=== PATIENT | male | born 1935 | race Caucasian/White ===

== ENCOUNTER 2019-01-17 09:33 | Inpatient (IN) ==
[2019-01-17 10:24] LABS: Basophils % 0.3 % (0.0-0.8); Eosinophils # 0.1 10*3/uL (0.0-0.87); Eosinophils % 0.6 % (0.00-10.9); Hematocrit 47.2 VOL% (42.0-52.0); Hemoglobin 15.6 GM/DL (14.0-18.0); Immature Granulocytes % 0.4 %; Immature Granulocytes Absolute 0.04 #; Lymphocytes # 1.8 10*3/uL (1.4-4.0); Lymphocytes % 18.3 % (21.2-54.2); Mean Corpuscular HGB Conc 33.1 GM/DL (32-36); Mean Corpuscular Volume 93.5 FL (87-102); Mean Platelet Volume 10.3 FL (9.6-12.0); Monocytes % 6.3 % (1.7-12.7); Neutrophils % 74.1 % (38.7-73.9); Platelet Count 154 T/CUMM (130-400); Red Blood Count 5.05 MC/CUMM (3.8-5.5); White Blood Count 9.8 T/CUMM (4-12)
[2019-01-17 10:36] LABS: Albumin 3.8 G/DL (3.4-5.0); Bilirubin,Total 0.4 MG/DL (0.2-1.0); Calcium 9.1 MG/DL (8.5-10.1); Osmolality,Calculated 280.5 MOS/KG (273-304)
[2019-01-17] MEDS ORDERED: ONDANSETRON 4 MG/2 ML VIAL IV PRN (10:55)
[2019-01-17] MEDS ORDERED: diphenhydrAMINE CAP 25 MG CAPSULE PO ONE (13:26)
[2019-01-17] MEDS ORDERED: DIAZEPAM 5 MG TABLET PO ONE (13:26)
[2019-01-17] MEDS ORDERED: POTASSIUM CHLORIDE RIDER 10 MEQ in PREMIX 1 EACH IV PRN (13:26)
[2019-01-17] MEDS ORDERED: MAGNESIUM SULF RIDER 2 GM in PREMIX 1 EACH IV PRN (13:26)
[2019-01-17] MEDS ORDERED: NITROGLYCERIN SL 0.4 MG TABLET SL PRN (13:27)
[2019-01-17] MEDS ORDERED: LIDOCAINE 1% 20 ML VIAL ONE (13:30)
[2019-01-17] MEDS ORDERED: HEPARIN/NACL 0.9% 2 UNITS/ML 500 ML IV ONE ×2 (13:30→13:37)
[2019-01-17 13:47] LABS: Basophils % 0.3 % (0.0-0.8); Eosinophils # 0.1 10*3/uL (0.0-0.87); Eosinophils % 0.6 % (0.00-10.9); Hemoglobin 14.8 GM/DL (14.0-18.0); Immature Granulocytes % 0.3 %; Immature Granulocytes Absolute 0.03 #; Lymphocytes # 2.3 10*3/uL (1.4-4.0); Lymphocytes % 24.2 % (21.2-54.2); Mean Corpuscular HGB Conc 32.9 GM/DL (32-36); Mean Corpuscular Volume 93.9 FL (87-102); Mean Platelet Volume 9.9 FL (9.6-12.0); Neutrophils % 66.6 % (38.7-73.9); Platelet Count 153 T/CUMM (130-400); Red Blood Count 4.79 MC/CUMM (3.8-5.5); Red Cell Distribution Width 11.9 % (9.3-17.3); White Blood Count 9.3 T/CUMM (4-12)
[2019-01-17 13:55] LABS: PT Patient Result 11.3 SECS (9.6-12.2)
[2019-01-17] MEDS ORDERED: MIDAZOLAM 2 MG/2 ML VIAL ONE (14:06)
[2019-01-17] MEDS ORDERED: HYDROmorphone 2 MG/1 ML VIAL ONE (14:06)
[2019-01-17 14:12] LABS: Troponin I 0.039 NG/ML (0.00-0.045)
[2019-01-17] MEDS ORDERED: diphenhydrAMINE 50 MG/1 ML VIAL ONE (14:21)
[2019-01-17] MEDS ORDERED: BIVALIRUDIN 250 MG VIAL IV ONE (14:42)
[2019-01-17] MEDS ORDERED: TICAGRELOR 90 MG TABLET ONE (14:58)
[2019-01-17] MEDS ORDERED: ZALEPLON 5 MG CAPSULE PO PRN (15:16)
[2019-01-17 17:22] LABS: Troponin I 0.047 NG/ML (0.00-0.045)
[2019-01-17] MEDS: LORazepam 0.5 MG TABLET PO SCH ×2 (17:46→21:51)
[2019-01-17] MEDS: SODIUM CHLORIDE 0.45% 1,000 ML IV SCH ×2 (17:47→22:07)
[2019-01-17 19:45] LABS: Troponin I 0.062 NG/ML (0.00-0.045)
[2019-01-17] MEDS ORDERED: AMIODARONE INJ 150 MG in DEXTROSE 5% 100 ML IV ONE (20:53)
[2019-01-17] MEDS ORDERED: carvediloL 3.125 MG TABLET PO SCH (21:00)
[2019-01-17] MEDS ORDERED: AMIODARONE INJ 450 MG in DEXTROSE 5% 241 ML IV SCH (21:00)
[2019-01-17] MEDS: ATORVASTATIN 10 MG TABLET PO SCH (21:45)
[2019-01-17] MEDS: TERAZOSIN 10 MG CAPSULE PO SCH (21:45)
[2019-01-17] MEDS: DOCUSATE SODIUM 100 MG CAPSULE PO SCH (21:45)
[2019-01-17] MEDS: ASPIRIN CHEW 81 MG TABLET PO SCH (21:46)
[2019-01-17] MEDS: TICAGRELOR 90 MG TABLET PO SCH (21:46)
[2019-01-17] MEDS: FUROSEMIDE 40 MG TABLET PO SCH (21:46)
[2019-01-17] MEDS: carvediloL 6.25 MG TABLET PO SCH (21:46)
[2019-01-17] MEDS: ACETAMINOPHEN 325 MG TABLET PO PRN (21:51)
[2019-01-17 23:26] LABS: Troponin I 0.062 NG/ML (0.00-0.045)
[2019-01-18] MEDS: AMIODARONE INJ 450 MG in DEXTROSE 5% 241 ML IV SCH ×2 (04:01→08:47)
[2019-01-18 04:47] LABS: Basophils % 0.3 % (0.0-0.8); Eosinophils # 0.2 10*3/uL (0.0-0.87); Eosinophils % 1.7 % (0.00-10.9); Hematocrit 40.8 VOL% (42.0-52.0); Hemoglobin 13.5 GM/DL (14.0-18.0); Immature Granulocytes % 0.4 %; Immature Granulocytes Absolute 0.04 #; Lymphocytes # 2.1 10*3/uL (1.4-4.0); Lymphocytes % 22.3 % (21.2-54.2); Mean Corpuscular HGB Conc 33.1 GM/DL (32-36); Mean Corpuscular Volume 92.7 FL (87-102); Mean Platelet Volume 10.6 FL (9.6-12.0); Neutrophils % 65.3 % (38.7-73.9); Platelet Count 146 T/CUMM (130-400); Red Cell Distribution Width 11.9 % (9.3-17.3); White Blood Count 9.4 T/CUMM (4-12)
[2019-01-18 05:09] LABS: Calcium 8.2 MG/DL (8.5-10.1); Osmolality,Calculated 275.7 MOS/KG (273-304)
[2019-01-18] MEDS: SODIUM CHLORIDE 0.45% 1,000 ML IV SCH ×3 (06:16→21:23)
[2019-01-18] MEDS ORDERED: DEXTROSE 5% IV SCH (08:49)
[2019-01-18] MEDS ORDERED: AMIODARONE IV SCH (08:49)
[2019-01-18] MEDS ORDERED: lisinopriL 5 MG TABLET PO SCH (09:00)
[2019-01-18] MEDS ORDERED: CLOPIDOGREL 75 MG TABLET PO SCH (09:00)
[2019-01-18] MEDS: lisinopriL 2.5 MG TABLET PO SCH (09:13)
[2019-01-18] MEDS: DOCUSATE SODIUM 100 MG CAPSULE PO SCH ×2 (09:13→21:14)
[2019-01-18] MEDS: PANTOPRAZOLE 40 MG TABLET PO SCH (09:13)
[2019-01-18] MEDS: TICAGRELOR 90 MG TABLET PO SCH ×2 (09:13→21:14)
[2019-01-18] MEDS: FUROSEMIDE 40 MG TABLET PO SCH ×2 (09:14→21:14)
[2019-01-18] MEDS: carvediloL 6.25 MG TABLET PO SCH ×2 (09:14→21:13)
[2019-01-18] MEDS: LORazepam 0.5 MG TABLET PO SCH ×3 (09:19→21:21)
[2019-01-18] MEDS: ACETAMINOPHEN 325 MG TABLET PO PRN (10:29)
[2019-01-18] MEDS ORDERED: POTASSIUM CHLORIDE 10 MEQ TABLET PO ONE (10:34)
[2019-01-18] MEDS ORDERED: SODIUM CHLORIDE 0.9% 250 ML IV ONE (15:40)
[2019-01-18] MEDS: TERAZOSIN 10 MG CAPSULE PO SCH (21:13)
[2019-01-18] MEDS: AMIODARONE 200 MG TABLET PO SCH (21:14)
[2019-01-18] MEDS: ASPIRIN CHEW 81 MG TABLET PO SCH (21:14)
[2019-01-18] MEDS: ATORVASTATIN 10 MG TABLET PO SCH (21:14)
[2019-01-19 05:17] LABS: Basophils % 0.2 % (0.0-0.8); Eosinophils # 0.2 10*3/uL (0.0-0.87); Eosinophils % 1.5 % (0.00-10.9); Hematocrit 40.5 VOL% (42.0-52.0); Hemoglobin 13.6 GM/DL (14.0-18.0); Immature Granulocytes % 0.6 %; Immature Granulocytes Absolute 0.06 #; Lymphocytes % 20.6 % (21.2-54.2); Mean Corpuscular HGB Conc 33.6 GM/DL (32-36); Mean Corpuscular Volume 92.9 FL (87-102); Mean Platelet Volume 10.7 FL (9.6-12.0); Monocytes % 8.3 % (1.7-12.7); Neutrophils % 68.8 % (38.7-73.9); Platelet Count 143 T/CUMM (130-400); Red Blood Count 4.36 MC/CUMM (3.8-5.5); Red Cell Distribution Width 11.9 % (9.3-17.3); White Blood Count 9.9 T/CUMM (4-12)
[2019-01-19 05:32] LABS: Calcium 8.1 MG/DL (8.5-10.1); Osmolality,Calculated 282.3 MOS/KG (273-304)
[2019-01-19] MEDS: SODIUM CHLORIDE 0.45% 1,000 ML IV SCH ×2 (05:51→15:00)
[2019-01-19] MEDS: AMIODARONE 200 MG TABLET PO SCH ×2 (09:39→21:07)
[2019-01-19] MEDS: lisinopriL 2.5 MG TABLET PO SCH (09:40)
[2019-01-19] MEDS: TICAGRELOR 90 MG TABLET PO SCH ×2 (09:40→21:09)
[2019-01-19] MEDS: DOCUSATE SODIUM 100 MG CAPSULE PO SCH ×2 (09:40→21:11)
[2019-01-19] MEDS: LORazepam 0.5 MG TABLET PO SCH ×2 (09:40→15:00)
[2019-01-19] MEDS: carvediloL 6.25 MG TABLET PO SCH ×2 (09:40→21:07)
[2019-01-19] MEDS: PANTOPRAZOLE 40 MG TABLET PO SCH (09:40)
[2019-01-19] MEDS: FUROSEMIDE 40 MG TABLET PO SCH ×2 (09:40→21:07)
[2019-01-19] MEDS ORDERED: LORazepam 1 MG TABLET PO SCH (21:00)
[2019-01-19] MEDS: ATORVASTATIN 10 MG TABLET PO SCH (21:09)
[2019-01-19] MEDS: ASPIRIN CHEW 81 MG TABLET PO SCH (21:09)
[2019-01-19] MEDS: TERAZOSIN 10 MG CAPSULE PO SCH (21:09)
[2019-01-20 04:57] LABS: Basophils % 0.4 % (0.0-0.8); Eosinophils # 0.1 10*3/uL (0.0-0.87); Eosinophils % 1.2 % (0.00-10.9); Hematocrit 40.4 VOL% (42.0-52.0); Hemoglobin 13.7 GM/DL (14.0-18.0); Immature Granulocytes % 0.5 %; Immature Granulocytes Absolute 0.05 #; Lymphocytes # 1.9 10*3/uL (1.4-4.0); Lymphocytes % 20.6 % (21.2-54.2); Mean Corpuscular HGB Conc 33.9 GM/DL (32-36); Mean Platelet Volume 10.3 FL (9.6-12.0); Monocytes % 8.4 % (1.7-12.7); Neutrophils % 68.9 % (38.7-73.9); Platelet Count 150 T/CUMM (130-400); Red Blood Count 4.39 MC/CUMM (3.8-5.5); Red Cell Distribution Width 11.9 % (9.3-17.3); White Blood Count 9.4 T/CUMM (4-12)
[2019-01-20 06:01] LABS: Calcium 8.8 MG/DL (8.5-10.1); Osmolality,Calculated 282.4 MOS/KG (273-304)
[2019-01-20 07:24] VITALS: BP 119/64
[2019-01-20] MEDS: lisinopriL 2.5 MG TABLET PO SCH (08:42)
[2019-01-20] MEDS: FUROSEMIDE 40 MG TABLET PO SCH (08:43)
[2019-01-20] MEDS: TICAGRELOR 90 MG TABLET PO SCH (08:43)
[2019-01-20] MEDS: AMIODARONE 200 MG TABLET PO SCH (08:43)
[2019-01-20] MEDS: DOCUSATE SODIUM 100 MG CAPSULE PO SCH (08:43)
[2019-01-20] MEDS: PANTOPRAZOLE 40 MG TABLET PO SCH (08:43)
[2019-01-20] MEDS: carvediloL 6.25 MG TABLET PO SCH (08:43)
[2019-01-20] MEDS ORDERED: LORazepam 0.5 MG TABLET PO SCH (09:00)
== END 2019-01-20 11:56 | disposition home or self-care (01) | DRG 247 ==
LOC: N.ED 09:33 → N.EDINP 09:33 → N.TELEN 11:51
PROVIDERS: ADMIT Family Medicine; ATTEND Family Medicine
PROC: CLCCHCL (ICD-10-PCS; 2019-01-17 14:15)

== ENCOUNTER 2021-02-03 14:29 | Observation (INO) ==
[2021-02-03 14:49] LABS: Basophils % 0.4 % (0.0-0.8); Eosinophils # 0.1 10*3/uL (0.0-0.87); Hematocrit 47.2 VOL% (42.0-52.0); Hemoglobin 15.6 GM/DL (14.0-18.0); Immature Granulocytes % 0.3 %; Immature Granulocytes Absolute 0.03 #; Lymphocytes # 2.6 10*3/uL (1.4-4.0); Lymphocytes % 28.7 % (21.2-54.2); Mean Corpuscular HGB Conc 33.1 GM/DL (32-36); Mean Corpuscular Volume 89.7 FL (87-102); Mean Platelet Volume 10.1 FL (9.6-12.0); Monocytes % 9.2 % (1.7-12.7); Neutrophils % 60.4 % (38.7-73.9); Platelet Count 170 T/CUMM (130-400); Red Blood Count 5.26 MC/CUMM (3.8-5.5); Red Cell Distribution Width 12.3 % (9.3-17.3); White Blood Count 8.9 T/CUMM (4-12)
[2021-02-03] MEDS ORDERED: AMIODARONE INJ 150 MG in DEXTROSE 5% 100 ML IV STA (14:53)
[2021-02-03] MEDS ORDERED: MAGNESIUM SULF RIDER 2 GM/50 ML PREMIX IV STA (14:53)
[2021-02-03 14:59] LABS: INR 1.1; PT Patient Result 12.4 SECS (10.5-12.0); Partial Thromboplastin Time 30.8 SECS (23.9-33.8)
[2021-02-03] MEDS ORDERED: guaiFENesin/DM ER 600-30 MG TABLET PO PRN (15:00)
[2021-02-03] MEDS ORDERED: MAGNESIUM SULF RIDER 4 GM/100 ML PREMIX IV PRN (15:00)
[2021-02-03] MEDS ORDERED: ZALEPLON 5 MG CAPSULE PO PRN (15:00)
[2021-02-03] MEDS ORDERED: diphenhydrAMINE CAP 25 MG CAPSULE PO PRN (15:00)
[2021-02-03] MEDS ORDERED: MAGNESIUM SULF RIDER 2 GM/50 ML PREMIX IV PRN (15:00)
[2021-02-03] MEDS ORDERED: ALUMINUM/MAGNES/SIMETH MAX STR 30 ML UDCUP PO PRN (15:00)
[2021-02-03] MEDS ORDERED: ACETAMINOPHEN 325 MG TABLET PO PRN (15:00)
[2021-02-03] MEDS ORDERED: hydrALAZINE 20 MG/1 ML VIAL IV PRN (15:00)
[2021-02-03] MEDS ORDERED: POTASSIUM CHLORIDE 20 MEQ TABLET PO PRN (15:00)
[2021-02-03] MEDS ORDERED: ONDANSETRON 4 MG/2 ML VIAL IV PRN (15:00)
[2021-02-03 15:13] LABS: Alanine Aminotransferase 23 U/L (16-61); Albumin 3.6 G/DL (3.4-5.0); Alkaline Phosphatase 55 U/L (45-117); Aspartate Amino Transferase 20 U/L (0-37); Bilirubin,Total < 0.39 MG/DL (0.20-1.00); Blood Urea Nitrogen 20 MG/DL (7-18); Calcium 8.6 MG/DL (8.5-10.1); Carbon Dioxide 24 MMOL/L (21-32); Estimated Glom Filtration Rate 62 ML/MIN; Glucose 123 MG/DL (74-106); Osmolality,Calculated 282.4 MOS/KG (273-304); Potassium 4.2 MMOL/L (3.5-5.1); Sodium 140 MMOL/L (136-145); Total Protein 7.5 G/DL (6.4-8.2)
[2021-02-03] MEDS ORDERED: ENOXAPARIN 80 MG/0.8 ML SYRINGE SUBCUT ONE (15:14)
[2021-02-03] MEDS: AMIODARONE INJ 450 MG in DEXTROSE 5% 241 ML IV SCH (16:08)
[2021-02-03] MEDS ORDERED: INFLUENZA VIRUS VACCINE 0.5 ML SYRINGE IM ONE (19:04)
[2021-02-03 19:37] LABS: Barbiturates Screen,Urine Negative (Negative); Benzodiazepines Screen,Urine Negative (Negative); Cannabinoid Screen,Urine Negative (Negative); Opiate Screen,Urine Negative (Negative); Phencyclidine Screen,Urine Negative (Negative)
[2021-02-03] MEDS: DOCUSATE SODIUM 100 MG CAPSULE PO SCH (21:26)
[2021-02-04] MEDS: AMIODARONE INJ 450 MG in DEXTROSE 5% 241 ML IV SCH ×4 (01:15→16:08)
[2021-02-04 05:11] LABS: Basophils % 0.4 % (0.0-0.8); Eosinophils # 0.1 10*3/uL (0.0-0.87); Eosinophils % 1.4 % (0.00-10.9); Hematocrit 43.7 VOL% (42.0-52.0); Hemoglobin 14.5 GM/DL (14.0-18.0); Immature Granulocytes % 0.4 %; Immature Granulocytes Absolute 0.03 #; Lymphocytes # 2.2 10*3/uL (1.4-4.0); Lymphocytes % 26.5 % (21.2-54.2); Mean Corpuscular HGB Conc 33.2 GM/DL (32-36); Mean Corpuscular Volume 92.4 FL (87-102); Mean Platelet Volume 10.4 FL (9.6-12.0); Monocytes % 7.7 % (1.7-12.7); Neutrophils % 63.6 % (38.7-73.9); Platelet Count 153 T/CUMM (130-400); Red Blood Count 4.73 MC/CUMM (3.8-5.5); Red Cell Distribution Width 12.3 % (9.3-17.3); White Blood Count 8.4 T/CUMM (4-12)
[2021-02-04 05:36] LABS: Calcium 8.2 MG/DL (8.5-10.1); Osmolality,Calculated 286.1 MOS/KG (273-304); Potassium 3.7 MMOL/L (3.5-5.1); Risk Ratio 4.68; VLDL Cholesterol 58.8 MG/DL
[2021-02-04] MEDS ORDERED: NITROGLYCERIN SL 0.4 MG TABLET SL PRN (07:38)
[2021-02-04] MEDS: FUROSEMIDE 40 MG TABLET PO SCH ×2 (09:14→20:55)
[2021-02-04] MEDS: DOCUSATE SODIUM 100 MG CAPSULE PO SCH ×2 (09:14→20:55)
[2021-02-04] MEDS: LORazepam 1 MG TABLET PO SCH ×2 (09:14→20:55)
[2021-02-04] MEDS: CLOPIDOGREL 75 MG TABLET PO SCH (09:14)
[2021-02-04] MEDS: carvediloL 6.25 MG TABLET PO SCH ×2 (09:14→20:55)
[2021-02-04] MEDS: PANTOPRAZOLE 40 MG TABLET PO SCH (09:14)
[2021-02-04] MEDS: ASPIRIN CHEW 81 MG TABLET PO SCH (09:14)
[2021-02-04] MEDS ORDERED: SERTRALINE 25 MG TABLET PO SCH (19:00)
[2021-02-04] MEDS ORDERED: ATORVASTATIN 10 MG TABLET PO SCH (19:00)
[2021-02-04] MEDS: TERAZOSIN 5 MG CAPSULE PO SCH (20:55)
[2021-02-05 06:11] LABS: Calcium 8.8 MG/DL (8.5-10.1); Osmolality,Calculated 282.5 MOS/KG (273-304); Potassium 4.3 MMOL/L (3.5-5.1)
[2021-02-05] MEDS: DOCUSATE SODIUM 100 MG CAPSULE PO SCH ×2 (09:00→21:46)
[2021-02-05] MEDS: FUROSEMIDE 40 MG TABLET PO SCH ×2 (09:00→15:45)
[2021-02-05] MEDS: CLOPIDOGREL 75 MG TABLET PO SCH (09:00)
[2021-02-05] MEDS: PANTOPRAZOLE 40 MG TABLET PO SCH (09:00)
[2021-02-05] MEDS: ASPIRIN CHEW 81 MG TABLET PO SCH (09:00)
[2021-02-05] MEDS: carvediloL 6.25 MG TABLET PO SCH (09:00)
[2021-02-05] MEDS: LORazepam 1 MG TABLET PO SCH ×2 (09:00→21:46)
[2021-02-05] MEDS: AMIODARONE INJ 450 MG in DEXTROSE 5% 241 ML IV SCH (09:08)
[2021-02-05] MEDS ORDERED: carvediloL 3.125 MG TABLET PO ONE (10:22)
[2021-02-05] MEDS ORDERED: ATORVASTATIN 10 MG TABLET PO SCH (21:00)
[2021-02-05] MEDS ORDERED: SERTRALINE 25 MG TABLET PO SCH (21:00)
[2021-02-05] MEDS: carvediloL 12.5 MG TABLET PO SCH (21:46)
[2021-02-05] MEDS: TERAZOSIN 5 MG CAPSULE PO SCH (21:46)
[2021-02-05] MEDS: AMIODARONE 200 MG TABLET PO SCH (21:46)
[2021-02-06] MEDS: AMIODARONE INJ 450 MG in DEXTROSE 5% 241 ML IV SCH (02:28)
[2021-02-06 05:57] LABS: Basophils % 0.2 % (0.0-0.8); Eosinophils % 0.2 % (0.00-10.9); Hematocrit 42.1 VOL% (42.0-52.0); Hemoglobin 14.1 GM/DL (14.0-18.0); Immature Granulocytes % 0.7 %; Immature Granulocytes Absolute 0.08 #; Lymphocytes # 2.1 10*3/uL (1.4-4.0); Mean Corpuscular HGB Conc 33.5 GM/DL (32-36); Mean Corpuscular Volume 92.3 FL (87-102); Mean Platelet Volume 10.8 FL (9.6-12.0); Monocytes % 8.1 % (1.7-12.7); Neutrophils % 72.8 % (38.7-73.9); Platelet Count 147 T/CUMM (130-400); Red Blood Count 4.56 MC/CUMM (3.8-5.5); Red Cell Distribution Width 12.3 % (9.3-17.3); White Blood Count 11.4 T/CUMM (4-12)
[2021-02-06 06:25] LABS: Calcium 8.5 MG/DL (8.5-10.1); Osmolality,Calculated 278.8 MOS/KG (273-304)
[2021-02-06 08:09] VITALS: BP 119/64
[2021-02-06] MEDS: LORazepam 1 MG TABLET PO SCH (09:06)
[2021-02-06] MEDS: ASPIRIN CHEW 81 MG TABLET PO SCH (09:07)
[2021-02-06] MEDS: carvediloL 12.5 MG TABLET PO SCH (09:07)
[2021-02-06] MEDS: FUROSEMIDE 40 MG TABLET PO SCH (09:07)
[2021-02-06] MEDS: PANTOPRAZOLE 40 MG TABLET PO SCH (09:07)
[2021-02-06] MEDS: CLOPIDOGREL 75 MG TABLET PO SCH (09:07)
[2021-02-06] MEDS: DOCUSATE SODIUM 100 MG CAPSULE PO SCH (09:08)
[2021-02-06] MEDS: AMIODARONE 200 MG TABLET PO SCH (09:08)
== END 2021-02-06 09:44 | disposition home or self-care (01) ==
LOC: N.ED 14:29 → N.EDINP 14:29 → N.ICU 18:32 → N.TELEN 02-05 17:00
PROVIDERS: ADMIT Internal Medicine Cardiovascular Disease; ATTEND Internal Medicine Cardiovascular Disease